=== PATIENT | male | born 1995 | race Caucasian/White ===

== ENCOUNTER 2019-08-21 08:59 | Emergency (ER) | payer OTHER ==
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
[2019-08-21] MEDS ORDERED: Ibuprofen TAB* 800 MG PO ONE (10:24)
[2019-08-21] MEDS ORDERED: Acetaminophen TAB* 325 MG PO ONE (10:54)
[2019-08-21 11:14] VITALS: BP 111/73
[2019-08-21 15:33] LABS: Hepatitis B Surface Antigen Nonreactive (Nonreactive)
[2019-08-21 15:50] LABS: Hepatitis B Surface Ab Not Immune (Immune); Hepatitis C Antibody Negative (Negative)
== END 2019-08-21 11:13 | disposition home or self-care (01) ==
LOC: ED 08:59
DX: S49.92XA Unspecified injury of left shoulder and upper arm, initial encounter (principal); Y04.0XXA Assault by unarmed brawl or fight, initial encounter; Y92.149 Unspecified place in prison as the place of occurrence of the external cause; Z77.21 Contact with and (suspected) exposure to potentially hazardous body fluids; Z88.8 Allergy status to other drugs, medicaments and biological substances
CPT/HCPCS: 36415; 86706; 86803; 87340; 99282; A9270-GY